=== PATIENT | male | born 1945 | race Caucasian/White ===

== ENCOUNTER 2019-02-12 12:17 | Outpatient (CLI) | payer MEDICARE ==
--- NOTE | 2019-02-12 12:57 | RAD ---
Left second toe 3 views HISTORY: Toe pain. FINDINGS: Joint spaces are preserved. Mild osteophytosis. Most pronounced at the plantar base of the proximal phalanx. More prominent osteophytosis and subchondral sclerosis at the first metatarsal phalangeal joint that is partially visualized. IMPRESSION: Mild osteoarthritic changes, including an osteophyte projecting inferiorly from the plant ar base of the proximal phalanx.
== END 2019-02-12 12:18 | disposition home or self-care (01) ==
LOC: BICRAD 12:17
PROVIDERS: ATTEND Podiatrist
DX: M25.572 Pain in left ankle and joints of left foot (principal); M19.072 Primary osteoarthritis, left ankle and foot; M25.775 Osteophyte, left foot

== ENCOUNTER 2022-03-18 15:16 | Outpatient (CLI) | payer MEDICARE, OTHER ==
[2022-03-18 16:19] LABS: INR-International Normal Ratio 0.9; PTT 24.5 sec (22.0-33.0); Prothrombin Time 10.3 sec (9.5-12.1)
[2022-03-18 16:24] LABS: Anion Gap 14 mmol/L (10-20); BUN (Urea Nitrogen) 11 mg/dL (8.4-25.7); Calc. Creatinine Clearance 0 mL/min (70-130); Calcium 9.6 mg/dL (7.8-10.44); Carbon Dioxide 24 mmol/L (23-31); Chloride 107 mmol/L (98-107); Estimated GFR 91; Glucose 102 mg/dL (83-110); Potassium 4.3 mmol/L (3.5-5.1); Sodium 141 mmol/L (136-145)
[2022-03-18 16:39] LABS: Hemoglobin 14.9 g/dL (13.5-17.5); Mean Corpuscular HGB CONC 36.8 g/dL (32.0-36.0); Mean Corpuscular Hemoglobin 33.5 pg (27.0-33.0); Mean Platelet Volume 10.5 fl (7.4-10.4); Platelet Count 188 10x3/uL (150-450); RBC Distribution Width 12.1 % (11.5-14.5); Red Blood Cell (RBC) Count 4.45 10x6/uL (4.32-5.72); White Blood Cell (WBC) Count 4.2 10x3/uL (3.5-10.5)
== END 2022-03-18 15:17 | disposition home or self-care (01) ==
LOC: LABBT 15:16
PROVIDERS: ATTEND Urology
DX: Z01.812 Encounter for preprocedural laboratory examination (principal); N20.1 Calculus of ureter
CPT/HCPCS: 80048; 85027; 85610; 85730; 87086

== ENCOUNTER 2022-03-23 11:27 | Day surgery (SDC) | payer MEDICARE ==
[2022-03-22 11:55] VITALS: BMI 29.1
[2022-03-23] MEDS ORDERED: ePHEDrine 50 MG/ML VIAL ONE (15:04)
[2022-03-23] MEDS ORDERED: PROPOFOL 200 MG/20 ML VIAL ONE (15:04)
[2022-03-31 09:15] LABS: CA Oxalate Dihydrate 20 % (.); CA Oxalate Monohydrate 80 % (.); Color Brown (.); Stone Weight 43 mg (.)
== END 2022-03-23 19:42 | disposition home or self-care (01) ==
LOC: SDC 11:27
PROVIDERS: ATTEND Urology
PROC: 0TC68ZZ Extirpation of Matter from Right Ureter, Via Natural or Artificial Opening Endoscopic (ICD-10-PCS; principal; 2022-03-23)
PROC: 0T768DZ Dilation of Right Ureter with Intraluminal Device, Via Natural or Artificial Opening Endoscopic (ICD-10-PCS; 2022-03-23)
DX: N20.1 Calculus of ureter (principal); K21.9 Gastro-esophageal reflux disease without esophagitis; Z79.899 Other long term (current) drug therapy
CPT/HCPCS: 52356; 74420; 82365; C1769; C2617; 88300; J2704; J3490